=== PATIENT | male | born 1980 | race African-American/Black ===

== ENCOUNTER → 2017-03-16 | Outpatient (CLI) | payer OTHER ==
[~2017-03-16] MED LIST: ALBUTEROL17 G1 IH; ALBUTEROL17 GM INH; CIPRO PO; DEXILANT60 MG PO; DICLOFENAC SODI50 MG PO; FLEXERIL10 M1 PO; NORVASC10 MG PO; OMEPRAZOLE40 M1 PO; SYMBICORT INH
--- NOTE | ~2017-03-16 | CT4 ---
[facility] A Service of [facility] & [facility] RADIOLOGY TEXT RESULTS PATIENT: JR RONIT ARANA LOCATION: [facility] : [birth year] UNIT #: [id number] AGE: [address]: ZBIGNIEW GONZALES APR SEX: M ORDER DR: [id number] [facility] [address] [place], [place] [address] [id number] O MR#: [id number] Acc #: [id number] NAME: RONIT ARANA N. : 1980 SEX: M STUDY DATE/TIME: 03/16/2017 14:27 [facility] RO[facility]: STUDY DESCRIPTION: CT Abd and Pelv Wo Cont Attending Physician: Zbigniew Gonzales Aprn Referring Physician: Zbigniew Gonzales Aprn Ordering Physician: Zbigniew Gonzales Aprn Primary Care Physician: Zbigniew Gonzales Aprn MEDICAL IMAGING REPORT This report is preliminary unless electronic signature is present EXAM CT abdomen and pelvis without contrast INDICATION 3 weeks of suprapubic pain and frequent urination. The pain is more right-sided than left. TECHNIQUE Axial 3 mm images were obtained through the abdomen and pelvis without IV or oral contrast. Sagittal and coronal reconstructions were generated. This CT exam was performed with one or more of the following radiation dose reduction techniques: automatic exposure control, adjustment of mA and/or kV according to patient size, and iterative reconstruction. FINDINGS The lung bases are clear. The gallbladder has been removed. The liver, spleen, pancreas, and adrenal glands are normal. The left kidney is normal. The right kidney has an exophytic lesion that is consistent with a cyst. It is low in density and about 17 mm in diameter. It measures less than 0 Hounsfield units. No bones are identified on the right either. The bowel appears normal, the appendix appears normal. The aorta is normal in size and there is no adenopathy. The bladder and prostate gland are normal. IMPRESSION 1. No urinary stones are identified. 2. Normal appendix. 3. A 17 mm low-density exophytic right renal lesion consistent with a cyst. STS. [facility] A Service of [facility] & [facility] RADIOLOGY TEXT RESULTS PATIENT: JR RONIT ARANA [facility] [birth year] UNIT #: [id number] AGE: [address]: ZBIGNIEW GONZALES APR SEX: M ORDER DR: Dictated by... Prabhu Fernandez M.D. THIS IS AN ELECTRONICALLY VERIFIED REPORT Prabhu Fernandez M.D. at 03/17/2017 6:04 AM LAZARUS/qian TD: 03/17/2017 04:28 JOB #: [id number] MEDICAL IMAGING REPORT Page 1 of 1 COPY
== END | disposition home or self-care (01) ==
LOC: CCAT 13:20
DX: R10.9 Unspecified abdominal pain (principal); N28.89 Other specified disorders of kidney and ureter
CPT/HCPCS: 74176

== ENCOUNTER → 2017-04-27 | Outpatient (CLI) | payer OTHER ==
--- NOTE | ~2017-04-27 | US77 ---
[facility] A Service of [facility] & [facility] RADIOLOGY TEXT RESULTS PATIENT: RONIT ARANA JR LOCATION: [facility] : [birth year] UNIT #: [id number] AGE: [address]: Hernan Kang MD SEX: M ORDER DR: [id number] [facility] [address] [place], [place] [address] [id number] O MR#: [id number] Acc #: [id number] NAME: RONIT ARANA : 1980 SEX: M STUDY DATE/TIME: 04/27/2017 9:00 UNIT: [facility] ROOM: STUDY DESCRIPTION: US Kidney Bilateral Complete Attending Physician: Hernan Kang M.D. Referring Physician: Hernan Kang M.D. Ordering Physician: Hernan Kang M.D. Primary Care Physician: Yvette Gonzales Aprn MEDICAL IMAGING REPORT This report is preliminary unless electronic signature is present EXAM Renal ultrasound bilateral, 04/27/2017 INDICATION 36-year-old male with history of an abnormal CT 03/16/2017. Renal mass. Ultrasound requested for further assessment. Right-sided flank pain for 2 months and left-sided flank pain as well. Symptoms began 03/16/2017. TECHNIQUE Sonographic imaging of the kidneys was performed bilaterally. Correlation is made with CT 03/16/2017. FINDINGS The right kidney measures 12.6 cm long axis and the left measures 13.1 cm. No shadowing stone of hydronephrosis on either side. Incidental benign cyst in the mid pole right kidney measures about 2 cm corresponding to a benign cyst on CT. Incidental fatty infiltration of the liver. Bladder unremarkable. IMPRESSION 1. No hydronephrosis or shadowing stone on either side. The kidneys are in the top range of normal for size. 2. Incidental benign right renal cyst. 3. Fatty infiltration of the liver. Dictated by... Casey Mo M.D. THIS IS AN ELECTRONICALLY VERIFIED REPORT Casey Mo M.D. at 04/29/2017 3:25 PM REBA/ljd STS. [facility] A Service of [facility] & [facility] RADIOLOGY TEXT RESULTS PATIENT: RONIT ARANA JR [id number] [birth year] UNIT #: [id number] AGE: [address]: Hernan Kang MD SEX: M ORDER DR: TD: 04/27/2017 23:50 JOB #: [id number] MEDICAL IMAGING REPORT Page 1 of 1 COPY
== END | disposition home or self-care (01) ==
LOC: CWCC 08:44
DX: N28.89 Other specified disorders of kidney and ureter (principal); K76.0 Fatty (change of) liver, not elsewhere classified
CPT/HCPCS: 76770